=== PATIENT | female | born 1955 | race Caucasian/White ===

== ENCOUNTER 2016-12-28 13:02 | Emergency (ER) | payer OTHER ==
[~2016-12-28] VITALS: Ht 160 cm; Wt 95.3 kg
[~2016-12-28 13:02] MED LIST: ADVAIR 250-501 EACH INH; ADVAIR DISKUS 21 DSK INH; AMOXICILLIN500 M2 PO; AUGMENTIN 875-1 EACH PO; BACLOFEN10 M1 PO; BENZONATATE200 M1 PO; BLM PO; CLONAZEPAM0.5 MG PO; DICYCLOMINE HCL10 MG PO; FIORICET 325 MG1 TAB PO; FLONASE ALLERG9.9 ML NASB; HYDROXYZINE HCL50 M1 PO; IBUPROFEN800 M1 PO; K-DUR 20MEQ TA20 MEQ PO; K-DUR20 MEQ PO; LIDODERM 5% PAT1 PAT TOP; LIDODERM1 EACH TOP; LIORESAL 10MG T10 MG PO; MEDROL DOSEPAK1 PAC PO; MELOXICAM15 MG PO; METOPROLOL SUCC50 M2 PO; MOTRIN 600 MG600 MG PO; NITROGLYCERIN1 EAC3 TOP; PANTOPRAZOLE SO40 MG PO; PERCOCET 325 MG1 TA2 PO; PERCOCET 5-3251 EACH PO; PREDNISONE10 MG PO; PROAIR HFA8.5 GM INH; PROTONIX40 M3 PO; ROBITUSSIN W/CO10 ML PO; TESSALON PERLE100 MG PO; TOPROL XL 25MG25 MG PO; TRAMADOL HCL50 M1 PO; TRAMADOL HCL50 MG PO; TRIAMCINOLONE A15 G3 TOP; VICODIN5-300 PO; VOLTAREN GEL1% TOP; VOLTAREN100 GM TOP; ZETIA10 M1 PO; ZETIA10 MG PO; ZITHROMAX Z-PA250 M1 PO; ZOFRAN ODT4 M1 PO
--- NOTE | 2016-12-28 15:11 | ED CARDIAC/CP/PALPITATIONS ---
History of Present Illness General Chief Complaint: Chest Pain Stated Complaint: CP/PALP/NECK PAIN Source: patient Exam Limitations: language barrier Allergies Coded Allergies: NO KNOWN ALLERGIES (07/21/12) Reconcile Medications Albuterol Sulfate (Albuterol Sulfate Hfa) 0.09 MG/Actuation MIALDY 2 PUFF INH PRN SHORTNESS OF BREATH (Reported) 90 MCG PER PUFF Baclofen (Lioresal) 10 MG TAB 1 TAB PO BID MUSCLE SPASMS (Reported) Clonazepam 0.5 MG TAB 1 TAB PO TID ANXIETY (Reported) Diclofenac Sodium (Voltaren) 1% GEL 4 GM TOP 4 TIMES/DAY JOINTS (Reported) apply to affected area(s) Ezetimibe (Zetia) 10 MG TAB 1 TAB PO DAILY CHOLESTEROL (Reported) Fluticasone Propionate (Flonase) 120 SPRAY/BOT SPR 2 SPRAY NASB BID NASAL CONGESTION (Reported) Fluticasone/Salmeterol (Advair 250-50 Diskus) 1 EACH BLST.W.DEV 1 PUF INH BID ASTHMA (Reported) Hydroxyzine HCl 50 MG TABLET 1 TAB PO Q6-8 PRN itch/rash Ibuprofen (Motrin 600 MG Tab) 600 MG TAB 1 TAB PO TID PAIN (Reported) with food Lidocaine (Lidoderm) 1 EACH ADH..PATCH 1 PAT TOP DAILY PRN PAIN (Reported) may wear up to 12 hours Metoprolol Succinate (Metoprolol Succinate XL) [address] 1 TAB PO DAILY HEART (Reported) Nitroglycerin (Nitroglycerin Patch) 0.2 MG/HR TDM 1 PATCH TOP DAILY HEART ( Reported) Ondansetron (Zofran Odt) 4 MG TAB.RAPDIS 1-2 TAB PO Q8H PRN NAUSEA Pantoprazole Sodium (Protonix) 40 MG TAB 40 MG PO BID GI (Reported) Triamcinolone Acetonide 15 GM OINT...G. 1 MODESTO TOP BID PRN rash apply to affected area(s) Triage Note: C/O CHEST TIGHTNESS RADIATING TO NECK AND SHOULDERS WITH DIZZINESS, WEAKNESS. X 2 HOURS, DENIES SOB. EKG DONE ON ARRIVAL. SON INTERPRETING, PT IS DEAF. Triage Nurses Notes Reviewed? yes HPI: This patient is a 61-year-old female with a past medical history including hypertension and myocardial infarction status post stent placement who is also deaf who presented to the emergency department today for evaluation of chest tightness. The patient communicated with me via handwriting as her son who was interpreting for her is not currently at the bedside. She reported that, "this morning I feel heartbeat and chest tightness." She also reported neck and shoulder pain, headache, and feeling weak. The patient reported that the pain has been coming and going with no provoking or alleviating factors. She rates the pain at a 8 out of 10. She reported a mild amount of associated nausea, but no abdominal pain or vomiting. The patient denied any fevers or jaw pain. The patient currently has on a nitroglycerin patch and took one sublingual nitroglycerin tablet. She reported that, "it helped a little." Her last myocardial infarction was in 2006. Her switchgear repairer is Dr. Bradley. (RHINA WHITNEY PA-C) Vital Signs & Intake/Output Vital Signs & Intake/Output Vital Signs Date Time Temp Pulse Resp B/P Pulse O2 O2 Flow FiO2 Ox Delivery Rate 12/28 2116 97.4 75 18 161/88 97 Room Air 12/28 1931 96.5 63 16 158/74 97 Room Air 12/28 1910 96.9 59 18 147/67 97 12/28 1720 Room Air 12/28 1643 97.6 72 18 133/77 98 12/28 1531 73 18 123/71 98 Room Air 12/28 1327 97.8 76 18 105/72 97 Room Air ED Intake and Output 12/29 0000 12/28 1200 Intake Total Output Total Balance Patient 210 lb Weight Past History Travel History Traveled to [place] past 21 day No Medical History Any Pertinent Medical History? see below for history Neurological: NONE EENT: DEAF Cardiovascular: hypertension, myocardial infarction, STENT Respiratory: NONE Gastrointestinal: NONE Hepatic: NONE Renal: NONE Musculoskeletal: NONE Psychiatric: NONE Endocrine: NONE Blood Disorders: NONE Cancer(s): NONE Surgical History Surgical History: non-contributory Psychosocial History Who do you live with Son What is your primary language Turkmen Tobacco Use: Never used ETOH Use: denies use Family History Hx Contributory? No (RHINA WHITNEY PA-C) Review of Systems Review of Systems Constitutional: Reports: no symptoms. EENTM: Reports: no symptoms. Respiratory: Reports: no symptoms. Cardiovascular: Reports: see HPI. GI: Reports: see HPI. Genitourinary: Reports: no symptoms. Musculoskeletal: Reports: see HPI. Skin: Reports: no symptoms. Neurological/Psychological: Reports: see HPI. All Other Systems: Reviewed and Negative (CHELO MESSER,RHINA) Physical Exam Physical Exam Cardiovascular: regular rate/rhythm, normal peripheral pulses, NO MURMURS, RUBS, OR GALLOPS. nO CAROTID BRUITS. nO jvd. nO PERIPHERAL EDEMA Comments: Well-developed well-nourished person in no acute distress HEENT: Normal EENT exam, moist mucous membranes PERRLA bilaterally Neck: Supple with no lymphadenopathy Back: Normal inspection Respiratory: Chest nontender. No respiratory distress. Lungs clear to auscultation bilaterally with no wheezes, rales, or rhonchi. No diminished breath sounds appreciated Abdomen: Soft and nondistended. Tenderness to deep palpation in the left upper quadrant with no rebound or guarding. No McBurney's point tenderness. Negative Ramírez sign. No organomegaly appreciated. No masses appreciated Extremity: Normal and equal pulses. Neuro: Alert oriented x3, cranial nerves II through XII grossly intact. Skin: No appreciable rash on exposed skin, skin is warm and dry. Psych: Mood and affect is normal Core Measures ACS in differential dx? Yes Severe Sepsis Present: No Septic Shock Present: No (CHELO MESSER,RHINA) Progress Differential Diagnosis: AMI, aortic dissection, atrial fibrillation, cholecystitis, costochondritis, hyperkalemia, hyperthyroid, hyperventilation, musculoskeletal pain, myocarditis, pancreatitis, pericarditis, pneumonia, pneumothorax, PSVT, pulmonary embolism, PUD/GERD, PVCs/PACs, unstable angina Diagnostic Imaging: Viewed by Me: Radiology Read. Discussed w/RAD: Radiology Read. CXR Impression: PATIENT: BI RUSSELL PRESENT AGE: 61 PATIENT ACCOUNT NO: [id number] : 54 LOCATION: [facility] ORDERING PHYSICIAN: RHINA WHITNEY PA-C SERVICE DATE: 12/28/16 EXAM TYPE: RAD - XRY-PORTABLE CHEST XRAY EXAMINATION: XR PORTABLE CHEST CLINICAL INFORMATION: Rule out cardiomegaly. Chest pain. COMPARISON: 06/01/2016. TECHNIQUE: Portable view of the chest was obtained. FINDINGS: The cardiomediastinal silhouette is within normal limits. The lungs and pleural spaces appear clear. There is no evidence of pneumothorax or pulmonary edema. Included osseous structures appear largely unremarkable. IMPRESSION: No acute process is identified. The heart does not appear enlarged. DICTATED BY: MORGAN PAGAN MD DATE/TIME DICTATED:1544 SEISMOGRAPH COMPUTER:BARYAN DATE/TIME TRANSCRIBED:12/28/161544 CONFIDENTIAL, DO NOT COPY WITHOUT APPROPRIATE AUTHORIZATION. <Electronically signed in Other Vendor System> SIGNED BY: MORGAN PAGAN MD 12/28/16 154 Initial ED EKG: normal axis, normal intervals, normal sinus rhythm, no ST T wave changes, 78 BPM Repeat EKG: unchanged (58 BPM) Comments: 12/28/2016 5:02:09 PM: This patient has a troponin of less than 0.01. D-dimer 248, however, based on [facility] protocol for pulmonary embolism, this patient would be considered to have an elevated d-dimer if the level is at or above her age 4. This would be 310., So based on [facility] protocol, this patient does not have an elevated d-dimer and does not warrant a CT angiogram of the chest at this time. Based on this patient's significant cardiac history with myocardial infarction and stent placement, she will stay for a second troponin level IV hours from the first with a repeat EKG at that time. 12/28/2016 5:13:32 PM: I updated the patient on the results of her laboratory studies and imaging. Explained to the patient that we will repeat the troponin level at 7:30 as well as repeat an EKG. She is in agreement with this plan. 12/28/2016 6:12:16 PM: The patient reported no relief of her pain with morphine. She is now reporting that the pain in her neck and shoulders as a 10 out of 10. She will receive IV Toradol at this time. Discussed this patient with Dr. Jackson who is in agreement with the plan for a second troponin level and repeat EKG as well as to discuss this patient with cardiology. 12/28/2016 9:01:11 PM: Judy Martel do WAS AT THE PATIENT'S BEDSIDE FOR FACE -TO-FACE EVALUATION. sECOND TROPONIN NOT ELEVATED. ekg NORMAL SINUS RHYTHM WITH NO ACUTE CHANGES. cHEST X-RAY UNREMARKABLE. tHIS PATIENT WILL RECEIVE A gi COCKTAIL. sHE WILL BE STABLE FOR DISCHARGE HOME WITH OUTPATIENT FOLLOW-UP. lIKELY MUSCULAR IN NATURE. 12/28/2016 9:41:56 PM: I spoke to this patient's switchgear repairer, Dr. Bradley. Discussed with him her current history of present illness as well as her current workup. Agreed that this is likely noncardiac in nature with 2 nonelevated troponin levels, sinus rhythm EKGs with no acute changes, and no significant relief with nitroglycerin. He feels comfortable with this patient being discharged with outpatient follow-up. He would like the patient call the office to schedule a follow-up appointment. I discussed this with the patient who is in agreement with the plan. (CHELO MESSER,RHINA) Plan of Care: Orders Procedure Date/time Status TROPONIN LEVEL 12/28 1929 Complete EKG 12/28 192 Active THYROID STIMULATING HORMONE 12/28 1511 Complete LIPID PANEL 12/28 1511 Complete FREE T4 12/28 1511 Complete TROPONIN LEVEL 12/28 1510 Complete D-DIMER 12/28 1510 Complete COMPREHENSIVE METABOLIC PANEL 12/28 1510 Complete CBC WITHOUT DIFFERENTIAL 12/28 1510 Complete EKG 12/28 1303 Active Laboratory Tests 12/28/16 1945: Troponin I < 0.01 12/28/16 1531: Triglycerides 166 H, Cholesterol 201 H, LDL Cholesterol, Calc 128, HDL Cholesterol 40, Cholesterol/HDL Ratio 5 H, TSH 2.000, Free T4 1.03 12/28/16 1531: Anion Gap 11, Estimated GFR > 60, BUN/Creatinine Ratio 10.0, Glucose 85, Calcium 9.5, Total Bilirubin 0.8, AST 19, ALT 34, Alkaline Phosphatase 78, Troponin I < 0.01, Total Protein 7.4, Albumin 4.2, Globulin 3.2, Albumin/Globulin Ratio 1.3, D-Dimer 248 H, CBC w Diff NO MAN DIFF REQ, RBC 4.65, MCV 86.4, MCH 28.3, RDW 14.5, MPV 8.8, Gran % 66.0, Lymphocytes % 24.9, Monocytes % 7.2, Eosinophils % 1.3, Basophils % 0.6, Absolute Granulocytes 4.2, Absolute Lymphocytes 1.6, Absolute Monocytes 0.5, Absolute Eosinophils 0.1, Absolute Basophils 0, PUBS MCHC 32.8 L Departure Departure Disposition: HOME OR SELF CARE Condition: Stable Clinical Impression Primary Impression: Chest pain Qualifiers: Chest pain type: unspecified Qualified Code: R07.9 - Chest pain, unspecified Referrals: SERGEY MARTINEZ,HELLEN Sue (PCP/Family) Additional Instructions: Please continue to take off previously prescribed medications as directed. Please call your switchgear repairer, Dr. Bradley, to schedule a follow-up appointment. Please return to the emergency department for any worsening symptoms or concerns. Departure Forms: Customer Survey General Discharge Information (RHINA WHITNEY PA-C) PA/METAL BUFFER Co-Sign Statement Statement: ED Attending supervision documentation- [] I saw and evaluated the patient. I have also reviewed all the pertinent lab results and diagnostic results. I agree with the findings and the plan of care as documented in the PA's/METAL BUFFER's documentation. [x] I have reviewed the ED Record and agree with the PA's/METAL BUFFER's documentation. [] Additions or exceptions (if any) to the PAs/METAL BUFFER's note and plan are summarized below: [] (ANTELMO MARTINEZ,JUDY Quesada) Departure Comments 12/28/16 I saw and evaluated the patient. She was comfortable on my exam. No shortness of breath. Pulmonary embolism considered - Age adjusted d-dimer was negative. ACS considered - troponin was negative 2 PA/METAL BUFFER Co-Sign Statement Statement: ED Attending supervision documentation- [X] I saw and evaluated the patient. I have also reviewed all the pertinent lab results and diagnostic results. I agree with the findings and the plan of care as documented in the PA's/METAL BUFFER's documentation. [] I have reviewed the ED Record and agree with the PA's/METAL BUFFER's documentation. [] Additions or exceptions (if any) to the PAs/METAL BUFFER's note and plan are summarized below: [] (JUDY MARTEL DO) Critical Care Note Critical Care Note Critical Care Time: non-applicable (RHINA WHITNEY PA-C)
--- NOTE | 2016-12-28 15:49 | RADIOLOGY REPORT ---
EXAMINATION: XR PORTABLE CHEST CLINICAL INFORMATION: Rule out cardiomegaly. Chest pain. COMPARISON: 06/01/2016. TECHNIQUE: Portable view of the chest was obtained. FINDINGS: The cardiomediastinal silhouette is within normal limits. The lungs and pleural spaces appear clear. There is no evidence of pneumothorax or pulmonary edema. Included osseous structures appear largely unremarkable. IMPRESSION: No acute process is identified. The heart does not appear enlarged.
[2016-12-28 15:53] LABS: ABSOLUTE BASOPHIL COUNT 0 /CUMM (0.0-0.2); ABSOLUTE EOSINOPHIL COUNT 0.1 /CUMM (0.0-0.7); ABSOLUTE GRANULOCYTE CT 4.2 /CUMM (1.4-6.5); ABSOLUTE LYMPH COUNT 1.6 /CUMM (1.2-3.4); ABSOLUTE MONOCYTE COUNT 0.5 /CUMM (0.10-0.60); BASOPHIL % 0.6 % (0.0-2.0); EOSINOPHIL % 1.3 % (0-5); HEMATOCRIT 40.2 % (37-47); MEAN CORPUSCULAR HGB 28.3 PG (27.0-31.0); MEAN CORPUSCULAR HGB CONC 32.8 G/DL (33.0-37.0); MEAN CORPUSCULAR VOLUME 86.4 FL (81.0-99.0); MEAN PLATELET VOLUME 8.8 FL (7.4-10.4); PLATELET COUNT 192 /CUMM (130-400); RBC DISTRIBUTION WIDTH 14.5 % (11.5-14.5); RED BLOOD CELL CT 4.65 /CUMM (4.20-5.40); WHITE BLOOD CELL COUNT 6.4 /CUMM (4.8-10.8)
[2016-12-28 21:17] VITALS: BP 161/88
== END 2016-12-28 22:04 ==
LOC: ERH 13:02
PROVIDERS: Physician Assistant
DX: R07.89 Other chest pain (principal)
CPT/HCPCS: 93005; 93010; 96374; 96375; J1885

== ENCOUNTER 2017-02-25 11:37 | Emergency (ER) | payer OTHER ==
[~2017-02-25] VITALS: Ht 154.9 cm; Wt 89.8 kg
--- NOTE | 2017-02-25 13:22 | ED INFLUENZA/URI COMPLAINT ---
History of Present Illness General Chief Complaint: General Adult Stated Complaint: COUGH *2DAYS,CHEST PAIN,EARS,CHEEK,CHIN,HEAD HURTS Source: patient Exam Limitations: PT IS DEAF, COMMUNICATED VIA WRITING Vital Signs & Intake/Output Vital Signs & Intake/Output Vital Signs Date Time Temp Pulse Resp B/P Pulse O2 O2 Flow FiO2 Ox Delivery Rate 02/25 1503 97.6 74 18 112/63 99 Room Air 02/25 1154 99.0 75 20 123/77 98 Room Air Allergies Coded Allergies: No Known Allergies (02/25/17) Reconcile Medications Albuterol Sulfate (Proair Hfa) 90 MCG HFA.AER.AD 2 PUF INH Q4-6 PRN PRN SHORTNESS OF BREATH (Reported) Baclofen 10 MG TABLET 1 TAB PO BID MUSCLE SPASMS (Reported) Benzonatate (Tessalon Perle) 100 MG CAPSULE 1 CAP PO BID PRN PRN cough Buspirone HCl 15 MG TABLET 1 TAB PO BID MENTAL HEALTH (Reported) Diclofenac Sodium (Voltaren) 1 % GEL..GRAM. 1 GM TOP 4 TIMES/DAY JOINTS ( Reported) apply to affected area(s) Ezetimibe (Zetia) 10 MG TABLET 1 TAB PO DAILY CHOLESTEROL (Reported) Fluticasone Propionate (Flonase Allergy Relief) 50 MCG/ACTUATION SPRAY.SUSP 2 SPRAY NASB BID NASAL PROBLEMS (Reported) Fluticasone/Salmeterol (Advair 250-50 Diskus) 1 EACH BLST.W.DEV 1 PUF INH BID ASTHMA (Reported) Ibuprofen 800 MG TABLET 1 TAB PO TID PAIN (Reported) Lidocaine (Lidoderm) 1 EACH ADH..PATCH 1 PAT TOP DAILY PRN PAIN (Reported) may wear up to 12 hours Metoprolol Succinate 50 MG TAB.ER.24H 1 TAB PO DAILY HEART (Reported) Nitroglycerin (Nitroglycerin Patch) 0.2 MG/HOUR PATCH.TD24 1 PATCH TOP DAILY HEART (Reported) Pantoprazole Sodium (Protonix) 40 MG TABLET.DR 1 TAB PO DAILY ACID REFLUX ( Reported) Polyethylene Glycol 3350 17 GRAM POWD.PACK 1 PAC PO DAILY CONSTIPATION ( Reported) Tylenol With Codeine (Tylenol With Codeine #3 Tablet) 300 MG-30 MG TABLET 1 TAB PO Q4-6 PRN PRN cough Triage Note: TRIAGE: PT TO ER C/C PAIN TO HEAD, EAR, CHEST AND THROAT X 2 DAYS, CONSTANT SINCE YESTERDAY. ALSO HAS HAD SLIGHTLY PRODUCTIVE COUGH WITH WHITE PHLEGM REPORTED. PT PMHX INCLUDES DEAFNESS, ABLE TO COMMUNICATE AT TRIAGE WITH READING LIPS AND WRITING THINGS DOWN. Triage Nurses Notes Reviewed? yes HPI: Ms. Vicky Cochran is 61-year-old female with past medical history hypertension, GERD, CAD w/ stent in place, Hyperlipidemia, asthma, arthritis presenting to the emergency department for cough. Patient states she's had a head cold and cough for the past 2-3 days which is not improving. She's been using [id number] cough suppressant losenge as well as a throat spray without any relief. Patient endorses subjective chills. Cough is productive of white sputum without any blood. Two other ill family members (Alvin and baby). She states she has chest pain while she coughs. No dyspnea upon exertion. She does have history of asthma for which she takes Advair as well as albuterol and those have not been helpful improving her symptoms. She also endorses pain in her bilateral ears as well as bilateral maxillary sinus pain. Past History Travel History Traveled to [place] past 21 day No Medical History Any Pertinent Medical History? see below for history Neurological: NONE EENT: DEAF Cardiovascular: hypertension, myocardial infarction, CARDIAC STENT, hyperlipidemia Respiratory: asthma Gastrointestinal: GERD Hepatic: NONE Renal: NONE Musculoskeletal: osteoarthritis Psychiatric: NONE Endocrine: NONE Blood Disorders: NONE Cancer(s): NONE SALON PROFESSIONAL/Reproductive: R OVARIAN CYST Surgical History Surgical History: non-contributory Psychosocial History Who do you live with Son What is your primary language Korean Tobacco Use: Quit >30 days ago ETOH Use: denies use Illicit Drug Use: denies illicit drug use Family History Hx Contributory? No Review of Systems Review of Systems Constitutional: Reports: chills. Denies: fever. EENTM: Reports: see HPI, ear pain, throat pain. Respiratory: Reports: cough, short of breath, sputum production. Denies: hemoptysis, wheezing. Cardiovascular: Denies: no symptoms, edema, orthopena, palpitations, syncope. GI: Reports: no symptoms. Genitourinary: Reports: no symptoms. Musculoskeletal: Reports: no symptoms. Skin: Reports: no symptoms. Neurological/Psychological: Reports: no symptoms. Hematologic/Endocrine: Reports: no symptoms. Immunologic/Allergic: Reports: no symptoms. All Other Systems: Reviewed and Negative Physical Exam Physical Exam General Appearance: well developed/nourished, no apparent distress, alert, awake Head: atraumatic, normal appearance Eyes: Bilateral: normal appearance, PERRL, EOMI. Ears, Nose, Throat: normal ENT inspection, moist mucous membrane, hearing grossly normal, Tympanic normal, pharyngeal erythema Neck: normal inspection, supple, full range of motion Respiratory: chest non-tender, no respiratory distress, harsh nonproductive cough Cardiovascular: regular rate/rhythm Gastrointestinal: normal bowel sounds, soft, non-tender Rectal: deferred Back: normal inspection, normal range of motion Extremities: normal inspection, normal capillary refill, normal range of motion, no edema Neurologic/Psych: no motor/sensory deficits, awake, alert, oriented x 3 Skin: intact, normal color, warm/dry Core Measures Severe Sepsis Present: No Septic Shock Present: No Progress Differential Diagnosis: influenza, otitis, pneumonia, pharyngitis, sinusitis Plan of Care: Orders Procedure Date/time Status RAPID VIRAL INFLUENZA A 02/25 1320 Complete EKG 02/25 1159 Active Microbiology 02/25 1537 NASOPHARYN: Influenza Virus A & B Rapid Smear - COMP Patient is generally well-appearing. Has mildly erythematous posterior oropharynx. The patient is actively coughing in the room while I'm examining her. She nonproductive, however patient states she is producing white sputum. No evidence of hypoxia or fever here. Will obtain chest x-ray rule out pneumonia as well as rapid influenza screen. She is given Tylenol with Codeine to assist with her symptoms here in the emergency department while she awaits her further evaluation. Chest x-ray negative for pneumonia. Influenza screen is also negative. Patient's symptoms have improved slightly with the Tylenol codeine. She is coughing less on reevaluation. We'll prescribe her some Tylenol with Codeine as well as some Tessalon Perles for discharge. Patient okay following up with her primary care doctor. Given return precautions should her symptoms worsen. (MARVA MARTINEZ,TOM) Diagnostic Imaging: Viewed by Me: Radiology Read. Discussed w/RAD: Radiology Read. Radiology Impression: no acute abnormality CXR Impression: no acute abnormality, no infiltrates, normal size heart, normal mediastinum Initial ED EKG: normal axis, normal intervals, normal p-waves, normal QRS complex, normal sinus rhythm Departure Departure Time of Disposition: 1622 Disposition: HOME OR SELF CARE Condition: Stable Clinical Impression Primary Impression: Cough Secondary Impressions: Sore throat Referrals: SERGEY MARTINEZ,HELLEN Sue (PCP/Family) Additional Instructions: Use tylenol w/ codeine every six hours for cough as needed. If you have worsening sore throat, see your primary care doctor. If you are unable to keep down food/drink, return to the emergency department for evaluation. Departure Forms: Customer Survey General Discharge Information Prescriptions: Current Visit Scripts Tylenol With Codeine (Tylenol With Codeine #3 Tablet) 1 TAB PO Q4-6 PRN PRN cough #20 TAB Benzonatate (Tessalon Perle) 1 CAP PO BID PRN PRN cough #20 CAP Comments Use the tylenol w/ codeine as needed for cough. You can also use the Tessalon pearls as needed for cough. If you develop a fever, or unable to keep down food by mouth or any other concerning symptoms, please return to the emergency department for evaluation. Do not take any of the prescriptions while operating any vehicles such as a car. I would also recommend he use a tablespoon of honey to help with the sore throat and a cough.
--- NOTE | 2017-02-25 14:15 | RADIOLOGY REPORT ---
EXAMINATION: CHEST 2 VIEWS CLINICAL INFORMATION: Cough, fever. COMPARISON: 12/28/2016. TECHNIQUE: PA and lateral views of the chest were obtained. FINDINGS: The cardiac silhouette is not enlarged. The mediastinal and hilar contours are unremarkable. There are neither pleural effusions nor pneumothoraces. There are no consolidations. The osseous structures are unremarkable. IMPRESSION: No evidence for acute disease.
[2017-02-25] MEDS ORDERED: POLYETHYLENE GL17 GM PO (14:19)
[2017-02-25] MEDS ORDERED: BUSPIRONE HCL15 M1 PO (14:20)
[2017-02-25 15:03] VITALS: BP 112/63
[2017-02-25] MEDS ORDERED: TESSALON PERLE100 M1 PO (16:33)
[2017-02-25] MEDS ORDERED: TYLENOL WITH C1 EACH PO (16:33)
== END 2017-02-25 16:43 ==
LOC: ERH 11:37
DX: R05 Cough (principal); J02.9 Acute pharyngitis, unspecified; R07.9 Chest pain, unspecified
CPT/HCPCS: 87804; 87804-59; 93005; 93010